=== PATIENT | female | born 1990 | race Hispanic/Latino ===

== ENCOUNTER 2021-04-28 18:33 | Emergency (ER) | payer OTHER, BC ==
[2021-04-28] MEDS ORDERED: Cyclobenzaprine 10 MG TAB ONE (19:47)
[2021-04-28 20:04] LABS: Pregnancy Test - Urine (BHCG) Negative (Negative); Pregu Control Background? CLEAR/WHITE (CLR/WHITE); Pregu Control Bar Appear? YES (CONTROL BAR)
== END 2021-04-28 20:55 | disposition home or self-care (01) ==
LOC: CSHERS 18:33
DX: S13.4XXA Sprain of ligaments of cervical spine, initial encounter (principal); V89.2XXA Person injured in unspecified motor-vehicle accident, traffic, initial encounter
CPT/HCPCS: 70450; 72100; 72125; 81025

== ENCOUNTER 2022-12-22 17:48 | Emergency (ER) | payer BC, OTHER ==
[2022-12-22 18:18] LABS: Bilirubin Neg (Negative); Blood, Urine 250 (Negative); Glucose, Urine (Dipstick) Normal (Negative); Ketone, Urine 150 mg/dL (Negative); Leukocyte 25 (Negative); Nitrite Negative (Negative); Protein, Urine (Dipstick) 30 mg/dl (Neg-Trace); Specific Gravity, Urine 1.025 (1.005-1.030)
[2022-12-22 18:21] LABS: Clarity Hazy (Clear)
[2022-12-22 18:44] LABS: CAUTI Indications for Culture Pregnancy; WBC/HPF 0-3 HPF (0-3)
[2022-12-22 18:45] LABS: Bacteria/HPF 1+ HPF (None Seen); Mucous/LPF 2+ LPF (<2+); Squamous Epithelial 0-3 HPF (0-3)
[2022-12-22 18:46] LABS: Urine Culture Reflex Yes Yes
[2022-12-22 18:58] LABS: #Eosinphils 0.2 10x3/uL (0.0-0.5); #Monocytes 0.4 10x3/uL (0.0-1.1); #Neutrophils 3.9 10x3/uL (1.5-8.4); %Basophils 0.3 % (0.0-2.0); %Eosinophils 3.4 % (0.0-6.0); %Lymphocytes 22.9 % (18.0-47.0); %Monocytes 6.5 % (0.0-10.0); %Neutrophils 66.7 % (40.0-75.0); Hemoglobin 11.8 g/dL (12.0-15.5); Mean Corpuscular Hemoglobin 28.8 pg (27.0-33.0); Mean Corpuscular Volume 84.6 fl (81.6-98.3); Mean Platelet Volume 10.3 fl (7.4-10.4); Platelet Count 254 10x3/uL (150-450); RBC Distribution Width 12.3 % (11.5-14.5); White Blood Cell (WBC) Count 5.8 10x3/uL (3.5-10.5)
[2022-12-22 19:07] LABS: Anion Gap 15 mmol/L (10-20); BUN (Urea Nitrogen) Less than 4 mg/dL (7.0-18.7); Calc. Creatinine Clearance 0 mL/min (70-130); Calcium 8.9 mg/dL (7.8-10.44); Carbon Dioxide 19 mmol/L (22-29); Chloride 106 mmol/L (98-107); Estimated GFR 119; Glucose 86 mg/dL (70-105); Potassium 3.5 mmol/L (3.5-5.1); Sodium 136 mmol/L (136-145)
== END 2022-12-22 21:15 | disposition home or self-care (01) ==
LOC: CSHERS 17:48
DX: O20.0 Threatened abortion (principal); O99.282 Endocrine, nutritional and metabolic diseases complicating pregnancy, second trimester; E86.0 Dehydration; Z3A.14 14 weeks gestation of pregnancy
CPT/HCPCS: 76815; 80048; 81001; 84702; 85025; 86900; 86901; 87086; 96360

== ENCOUNTER 2023-02-02 10:48 | Emergency (ER) | payer BC, OTHER ==
[2023-02-02 11:20] LABS: #Eosinphils 0.3 10x3/uL (0.0-0.5); #Monocytes 0.4 10x3/uL (0.0-1.1); #Neutrophils 5.1 10x3/uL (1.5-8.4); %Basophils 0.4 % (0.0-2.0); %Eosinophils 3.9 % (0.0-6.0); %Lymphocytes 17.9 % (18.0-47.0); %Monocytes 5.5 % (0.0-10.0); %Neutrophils 71.6 % (40.0-75.0); Hematocrit 31.2 % (34.9-44.5); Hemoglobin 10.4 g/dL (12.0-15.5); Mean Corpuscular HGB CONC 33.3 g/dL (32.0-36.0); Mean Corpuscular Hemoglobin 29.1 pg (27.0-33.0); Mean Corpuscular Volume 87.4 fl (81.6-98.3); Mean Platelet Volume 9.8 fl (7.4-10.4); Platelet Count 273 10x3/uL (150-450); RBC Distribution Width 13.6 % (11.5-14.5); Red Blood Cell (RBC) Count 3.57 10x6/uL (3.90-5.03); White Blood Cell (WBC) Count 7.1 10x3/uL (3.5-10.5)
[2023-02-02 11:27] LABS: Bilirubin Neg (Negative); Blood, Urine 50 (Negative); Clarity Clear (Clear); Glucose, Urine (Dipstick) Normal (Negative); Ketone, Urine Negative (Negative); Leukocyte 25 (Negative); Nitrite Negative (Negative); Protein, Urine (Dipstick) Negative (Neg-Trace); Specific Gravity, Urine 1.015 (1.005-1.030)
[2023-02-02 11:30] LABS: ALT (SGPT) 20 U/L (8-55); AST (SGOT) 20 U/L (5-34); Albumin 3.3 g/dL (3.5-5.0); Alkaline Phosphatase 77 U/L (40-110); Anion Gap 12 mmol/L (10-20); BUN (Urea Nitrogen) 4 mg/dL (7.0-18.7); Bilirubin, Total 0.4 mg/dL (0.2-1.2); Calc. Creatinine Clearance 0 mL/min (70-130); Calcium 8.5 mg/dL (7.8-10.44); Carbon Dioxide 22 mmol/L (22-29); Chloride 106 mmol/L (98-107); Estimated GFR 120; Globulin 3.1 g/dL (2.4-3.5); Glucose 94 mg/dL (70-105); Potassium 3.5 mmol/L (3.5-5.1); Protein, Total 6.4 g/dL (6.0-8.3); Sodium 136 mmol/L (136-145)
[2023-02-02 11:46] LABS: Bacteria/HPF 1+ HPF (None Seen); CAUTI Indications for Culture Pregnancy; Mucous/LPF Rare LPF (<2+); RBC/HPF 0-3 HPF (0-3); Squamous Epithelial 0-3 HPF (0-3); Urine Culture Reflex Yes Yes; WBC/HPF 0-3 HPF (0-3)
== END 2023-02-02 14:51 | disposition home or self-care (01) ==
LOC: CSHERS 10:48
DX: O20.8 Other hemorrhage in early pregnancy (principal); O23.42 Unspecified infection of urinary tract in pregnancy, second trimester; O44.32 Partial placenta previa with hemorrhage, second trimester; N39.0 Urinary tract infection, site not specified; Z3A.19 19 weeks gestation of pregnancy
CPT/HCPCS: 76815; 80053; 81001; 84702; 85025; 86900; 86901; 87086

== ENCOUNTER 2023-04-30 14:58 | Day surgery (SDC) | payer BC, OTHER ==
[2023-04-30 15:23] VITALS: BMI 36.6
[2023-04-30] MEDS ORDERED: hydrALAZINE 20 MG/ML VIAL SLOW IVP PRN (16:01)
[2023-04-30] MEDS ORDERED: Acetaminophen 500 MG TAB PO SCH (16:15)
[2023-04-30 16:25] LABS: #Eosinphils 0.4 10x3/uL (0.0-0.5); #Monocytes 0.6 10x3/uL (0.0-1.1); #Neutrophils 6.6 10x3/uL (1.5-8.4); %Basophils 0.3 % (0.0-2.0); %Monocytes 6.4 % (0.0-10.0); %Neutrophils 71.5 % (40.0-75.0); Hematocrit 32.2 % (34.9-44.5); Hemoglobin 10.5 g/dL (12.0-15.5); Mean Corpuscular HGB CONC 32.6 g/dL (32.0-36.0); Mean Corpuscular Hemoglobin 28.7 pg (27.0-33.0); Mean Platelet Volume 10.5 fl (7.4-10.4); Platelet Count 219 10x3/uL (150-450); RBC Distribution Width 13.4 % (11.5-14.5); Red Blood Cell (RBC) Count 3.66 10x6/uL (3.90-5.03); White Blood Cell (WBC) Count 9.2 10x3/uL (3.5-10.5)
[2023-04-30 16:33] LABS: ALT (SGPT) 10 U/L (8-55); AST (SGOT) 16 U/L (5-34); Albumin 3.1 g/dL (3.5-5.0); Alkaline Phosphatase 114 U/L (40-110); Anion Gap 13 mmol/L (10-20); BUN (Urea Nitrogen) 6 mg/dL (7.0-18.7); Bilirubin, Total 0.3 mg/dL (0.2-1.2); Calc. Creatinine Clearance 178 mL/min (70-130); Calcium 8.9 mg/dL (7.8-10.44); Carbon Dioxide 24 mmol/L (22-29); Chloride 104 mmol/L (98-107); Estimated GFR 118; Globulin 3.4 g/dL (2.4-3.5); Glucose 82 mg/dL (70-105); Potassium 3.9 mmol/L (3.5-5.1); Protein, Total 6.5 g/dL (6.0-8.3); Sodium 137 mmol/L (136-145)
[2023-04-30 16:39] LABS: Creatinine, Urine 136.54 mg/dL (47-110)
== END 2023-04-30 17:00 | disposition home or self-care (01) ==
LOC: CSHLD/OP 14:58
PROVIDERS: ATTEND Obstetrics & Gynecology
DX: O16.3 Unspecified maternal hypertension, third trimester (principal); Z3A.31 31 weeks gestation of pregnancy; Z88.1 Allergy status to other antibiotic agents; Z88.8 Allergy status to other drugs, medicaments and biological substances
CPT/HCPCS: 36415; 80053; 82570; 84156; 85025

== ENCOUNTER 2023-06-10 10:00 | Inpatient (IN) | payer BC, OTHER ==
[2023-06-09 11:51] LABS: Hematocrit 35.7 % (34.9-44.5); Hemoglobin 11.7 g/dL (12.0-15.5); Platelet Count 231 10x3/uL (150-450)
[2023-06-09 12:21] LABS: Syphilis Antibody Nonreactive (Nonreactive); Syphilis Antibody Index 0.09 S/CO (<1.00 Non-Reactive)
[2023-06-09 12:22] LABS: HBSAg Index 0.55 S/CO (0-0.99); Hep B Surf Ag Non-Reactive S/CO (NonReactive)
[2023-06-10 10:36] VITALS: BMI 37.5
[2023-06-10] MEDS ORDERED: Morphine PF 10 MG/10 ML VIAL ONE (10:39)
[2023-06-10] MEDS ORDERED: Phenylephrine 10 MG/ML VIAL ONE (10:40)
[2023-06-10] MEDS ORDERED: Ondansetron PF 4 MG/2 ML Vial ONE (10:40)
[2023-06-10] MEDS ORDERED: Oxytocin 10 UNITS/ML VIAL ONE ×2 (10:40→12:38)
[2023-06-10] MEDS ORDERED: Ketorolac Tromethamine 30 MG/ML VIAL ONE (10:40)
[2023-06-10] MEDS ORDERED: Dexamethasone 4 mg/ml Vial ONE (10:40)
[2023-06-10] MEDS ORDERED: Famotidine/PF 20 mg/2ml Vial SLOW IVP PRN (11:15)
[2023-06-10] MEDS ORDERED: Carboprost 250 MCG/ML AMP IM PRN (11:15)
[2023-06-10] MEDS ORDERED: hydrALAZINE 20 MG/ML VIAL SLOW IVP PRN ×2 (11:15→16:42)
[2023-06-10] MEDS ORDERED: Diphenoxylate HCl/Atropine Tablet PO PRN ×2 (11:15)
[2023-06-10] MEDS ORDERED: Bicitra 30 ML UDCUP PO PRN (11:15)
[2023-06-10] MEDS ORDERED: Ondansetron PF 4 MG/2 ML Vial IVP PRN ×3 (11:15→12:53)
[2023-06-10] MEDS ORDERED: CEFAZOLIN 2 GM in Sodium Chloride 0.9% 100 ML IVPB SCH (11:15)
[2023-06-10] MEDS ORDERED: Promethazine HCl 25 MG/ML VIAL IM PRN (11:15)
[2023-06-10] MEDS ORDERED: Methylergonovine 0.2 MG/ML VIAL IM PRN (11:15)
[2023-06-10] MEDS ORDERED: Tranexamic Acid 1,000 MG/10 ML VIAL IVP PRN (11:15)
[2023-06-10] MEDS ORDERED: Oxytocin 30 units/NS 500 ML 500 ML IV SCH (11:15)
[2023-06-10] MEDS ORDERED: fentaNYL 50 mcg/mL 1 mL Vial SLOW IVP PRN (12:53)
[2023-06-10] MEDS ORDERED: Naloxone HCl 0.4 mg/ml Vial IVP PRN ×2 (12:53)
[2023-06-10] MEDS ORDERED: Meperidine HCl/PF 25 MG/ML VIAL SLOW IVP PRN (12:53)
[2023-06-10] MEDS ORDERED: Naloxone HCl 0.4 mg/ml Vial IV PRN (12:53)
[2023-06-10] MEDS ORDERED: Moisturizing Cream (Eucerin) 113 GM JAR TOP PRN (12:53)
[2023-06-10] MEDS ORDERED: Ketorolac Tromethamine 30 MG/ML VIAL IVP SCH (13:00)
[2023-06-10] MEDS ORDERED: Communication Order-Pharmacy FS SCH (13:00)
[2023-06-10] MEDS ORDERED: Bisacodyl 10 MG SUPP PR PRN (16:42)
[2023-06-10] MEDS ORDERED: Simethicone Chewable 80 MG TAB PO PRN (16:42)
[2023-06-10] MEDS ORDERED: Boostrix 0.5 ML (Tdap) VIAL (>/=7 yrs of age) IM ONE (16:42)
[2023-06-10] MEDS ORDERED: Acetaminophen 325 MG TAB PO PRN (16:42)
[2023-06-10] MEDS ORDERED: Lanolin Ointment 7 GM TUBE TOP PRN (16:42)
[2023-06-10] MEDS: Lactated Ringer's 1,000 ML IV SCH ×2 (19:36→19:45)
[2023-06-10] MEDS: Ketorolac Tromethamine 30 MG/ML VIAL IVP PRN (19:42)
[2023-06-10] MEDS: Docusate 100 MG CAP PO SCH (19:45)
[2023-06-11] MEDS ORDERED: Zolpidem Tartrate 5 MG TAB PO PRN (01:00)
[2023-06-11 03:52] LABS: Hematocrit 25.5 % (34.9-44.5); Hemoglobin 8.6 g/dL (12.0-15.5); Mean Corpuscular HGB CONC 33.7 g/dL (32.0-36.0); Mean Corpuscular Hemoglobin 30.1 pg (27.0-33.0); Mean Corpuscular Volume 89.2 fl (81.6-98.3); Mean Platelet Volume 11.8 fl (7.4-10.4); Platelet Count 181 10x3/uL (150-450); RBC Distribution Width 13.9 % (11.5-14.5); Red Blood Cell (RBC) Count 2.86 10x6/uL (3.90-5.03); White Blood Cell (WBC) Count 9.2 10x3/uL (3.5-10.5)
[2023-06-11] MEDS: Lactated Ringer's 1,000 ML IV SCH ×2 (05:48→07:25)
[2023-06-11] MEDS: Ferrous Sulfate 325 MG TAB PO SCH ×3 (05:48→20:50)
[2023-06-11] MEDS: Ketorolac Tromethamine 30 MG/ML VIAL IVP PRN (06:08)
[2023-06-11] MEDS: Docusate 100 MG CAP PO SCH ×2 (07:42→20:51)
[2023-06-11] MEDS: Prenatal Vitamin 1 TAB PO SCH (07:42)
[2023-06-11] MEDS: HYDROcodone/Acetaminophen 5/325 mg Tablet PO PRN ×3 (10:19→20:56)
[2023-06-11] MEDS: Ibuprofen 800 MG TAB PO SCH ×2 (14:11→20:51)
[2023-06-12] MEDS ORDERED: predniSONE 20 MG TAB PO SCH (02:00)
[2023-06-12] MEDS ORDERED: Loratadine 10 MG TAB PO SCH (02:00)
[2023-06-12] MEDS: HYDROcodone/Acetaminophen 5/325 mg Tablet PO PRN ×3 (02:35→10:56)
[2023-06-12] MEDS: Lactated Ringer's 1,000 ML IV SCH (05:34)
[2023-06-12] MEDS: Ibuprofen 800 MG TAB PO SCH ×2 (06:18→13:34)
[2023-06-12 08:08] VITALS: TEMP 98.6
[2023-06-12] MEDS: Ferrous Sulfate 325 MG TAB PO SCH (08:29)
[2023-06-12] MEDS: Prenatal Vitamin 1 TAB PO SCH (08:29)
[2023-06-12] MEDS: Docusate 100 MG CAP PO SCH (08:29)
[2023-06-12 11:48] VITALS: BP 139/86
== END 2023-06-12 13:47 | disposition home or self-care (01) | DRG 787 ==
LOC: CSHLD 10:00 → CSHPP 16:15
PROVIDERS: ADMIT Obstetrics & Gynecology; ATTEND Obstetrics & Gynecology
PROC: 10D00Z1 Extraction of Products of Conception, Low, Open Approach (ICD-10-PCS; principal; 2023-06-10)
DX: O34.211 Maternal care for low transverse scar from previous cesarean delivery (principal); O44.03 Complete placenta previa NOS or without hemorrhage, third trimester; O16.4 Unspecified maternal hypertension, complicating childbirth; Z3A.37 37 weeks gestation of pregnancy; Z37.0 Single live birth; Z91.013 Allergy to seafood
CPT/HCPCS: 36415; 51702; 85014; 85018; 85027; 85049; 86780; 86850; 86900; 86901; 87340; J1100; J1885; J2274; J2370; J2405; J2590; J7120; J7512